=== PATIENT | female | born 2005 | race Caucasian/White ===

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

== ENCOUNTER → 2023-02-02 10:43 | Outpatient (BNVA) | payer MEDICAID, SELFPAY | PROVIDERS: PCP Nurse Practitioner Family; Visit Provider Obstetrics & Gynecology | DX: Z34.90 Encounter for supervision of normal pregnancy, unspecified, unspecified trimester (principal); R82.90 Unspecified abnormal findings in urine | CPT/HCPCS: 84315; 87086 ==

== ENCOUNTER → 2023-02-23 13:56 | Outpatient (BNVA) | payer MEDICAID, SELFPAY | PROVIDERS: PCP Nurse Practitioner Family; Visit Provider Obstetrics & Gynecology | DX: Z34.90 Encounter for supervision of normal pregnancy, unspecified, unspecified trimester (principal) | CPT/HCPCS: 84315; 87086 ==

== ENCOUNTER → 2023-03-29 08:58 | Outpatient (BNVA) | payer MEDICAID, SELFPAY | PROVIDERS: PCP Nurse Practitioner Family; Visit Provider Obstetrics & Gynecology | DX: Z34.90 Encounter for supervision of normal pregnancy, unspecified, unspecified trimester (principal) | CPT/HCPCS: 82950; 84315 ==

== ENCOUNTER → 2023-04-06 14:20 | Outpatient (BNVA) | payer MEDICAID, SELFPAY | PROVIDERS: PCP Nurse Practitioner Family; Visit Provider Obstetrics & Gynecology | DX: Z34.90 Encounter for supervision of normal pregnancy, unspecified, unspecified trimester (principal) | CPT/HCPCS: 84315; 86850 ==

== ENCOUNTER → 2023-05-18 13:53 | Outpatient (BNVA) | payer MEDICAID, SELFPAY | PROVIDERS: PCP Nurse Practitioner Family; Visit Provider Obstetrics & Gynecology | DX: Z34.90 Encounter for supervision of normal pregnancy, unspecified, unspecified trimester (principal) | CPT/HCPCS: 84315; 87081 ==

== ENCOUNTER 2023-06-15 15:40 | Outpatient (CLI) | payer MEDICAID, SELFPAY ==
[2023-06-15 15:40] VITALS: BMI 40.4
[2023-06-15 15:59] VITALS: BP 128/85; PULSE 112
[2023-06-15 16:19] VITALS: BP 133/75; PULSE 112
== END 2023-06-15 16:26 | disposition home or self-care (01) ==
LOC: OPOB 15:52 → OBGYN 15:53
PROVIDERS: PCP Nurse Practitioner Family; Visit Provider Obstetrics & Gynecology
DX: O36.8190 Decreased fetal movements, unspecified trimester, not applicable or unspecified (principal); Z3A.00 Weeks of gestation of pregnancy not specified
CPT/HCPCS: 59025; 84315

== ENCOUNTER 2023-06-20 15:36 | Inpatient (IN) | payer MEDICAID, SELFPAY ==
[2023-06-20] VITALS (12 sets, daily range): BP systolic 109–137; BP diastolic 55–99; PULSE 96–137; RESP 20; TEMP 36.3–36.4; BMI 40.6
[2023-06-20] MEDS: hyDROXYzine 25 mg Capsule 50 MG PO (16:34)
[2023-06-20 18:23] LABS: Basophils % 0.3 %; Eosinophils # 0.1 10^3/uL (0.0-0.8); Eosinophils % 0.4 %; Hematocrit 33.7 % (36-47); Lymphocytes # 1.6 10^3/uL (1.5-6.5); Lymphocytes % 13.3 %; Mean Corpuscular Hemoglobin 27.1 pg (27-33); Mean Corpuscular Volume 84.5 fl (85-98); Mean Platelet Volume 10.3 fL (7.4-10.4); Monocytes % 8.7 %; Neutrophils # 9.08 10^3/uL (1.8-8.0); Neutrophils % 75.6 %; Nucleated Red Blood Cells % 0 %; Platelet Count 233 10^3/cmm (157-399); Red Blood Count 3.99 10^6/uL (3.85-5.65); Red Cell Distribution Width 14.8 % (12.1-15.1); White Blood Count 12.02 10^3/uL (4.5-13.0)
[2023-06-20] MEDS: dextrose 5%-lactated ringers 1,000 ML 125 ML IV (18:59)
--- NOTE | 2023-06-20 19:30 | PM.OBGYHP ---
Providers/Chief Complaint Admitting Physician: Jan Arteaga MD Primary TABLE GAMES SHIFT MANAGER: Jan Arteaga MD Primary Care Provider: EUGENE Gavin Chief Complaint: IOL-Post date HPI TABLE GAMES SHIFT MANAGER History of Present Illness 17 y.o. G1 EDC June 15, 2023 At 40 w 5 d No complications No c/o + active movements Admitted for induction of labor Present Details : 1 Para: 0 Labs Rubella: Immune RPR: Negative GBS: Negative Medications/Allergies Home Medications Medication Instructions Recorded Confirmed Last Taken Type mometasone 0.1 % topical cream 1 applic topical TID PRN itching 05/25/23 06/20/23 Unknown Rx #45 grams vits no.126-ferrous fum 1 tab PO DAILY 06/08/23 06/20/23 06/20/23 History 28 mg iron-folic acid 800 mcg tablet (Classic ) Allergies Allergy/AdvReac Type Severity Reaction Status Date / Time Penicillins Allergy Unknown unknown Verified 06/20/23 10:00 amoxicillin Allergy ALGY-Anaphy Verified 06/20/23 10:00 laxis tomato Allergy ALGY-Hives Verified 06/20/23 16:49 PFSH TABLE GAMES SHIFT MANAGER PFSH: Medical History Allergic rhinitis Hyperactivity Surgical History History of placement of ear tubes Family History Mother Migraines Other Suicide Denies family history of Cervical cancer Colon cancer Ovarian cancer Diabetes Breast cancer Hypertension Uterine cancer Stroke Social History Marital status: Single History History History 1 Term 0 Miscarriages/Ectopic Living Children Care CHIQUITA Calculator Estimated Delivery Date Method Current WG Current Estimate 06/15/23 LMP (Certain) 40w 6d Vitals/I&O/Wt Last Vital Signs Temp 97.5 F L 06/20/23 22:05 Pulse 100 06/21/23 01:42 Resp 20 H 06/20/23 15:39 BP 104/53 06/21/23 01:42 O2 Del Method Room Air, Nasal Cannula 06/20/23 14:50 Weight last 48 hrs Weight 215 lb Physical Exam Narrative: Weight 220 lbs; 5?2? VS normal Comfortable Awake, alert Lungs: clear Cor: RRR FH 38 cm; cephalic (scanned by me at 36 w) FHTs normal Cervix: 1 / 25% / -3 / posterior Ext: no edema External monitor: heart tracing good variability, + accelerations Data 06/20/23 18:13 Results Labs OB ([facility]): Obstetrics US 01/26/23 Blood Type O Negative 06/20/23 Antibody Screen Negative 06/20/23 Hct 33.7 % (36-47) L 06/20/23 Hgb 10.80 g/dL (12.4-14.8) L 06/20/23 Rho(D) Type Negative 06/20/23 Plt Count 233 10^3/cmm (157-399) 06/20/23 Hep Bs Antigen Non-reactive (Nonreactive) 11/24/22 Hepatitis C Antibody Non-reactive (Nonreactive) 11/24/22 Rubella IgG Antibody 53.5 IU/mL (0.0-10.0) H 11/24/22 RPR Nonreactive (Nonreactive) 11/24/22 HIV 1&2 Ab & HIV 1 Ag Non-reactive (Non-Reactiv) 11/24/22 TSH 0.57 uIU/mL (0.27-4.20) 12/01/22 Cystic Fibrosis Screen Negative 11/24/22 Quad Test Interpret See note 12/29/22 Gest Glucose Tolerance 86 mg/dL (70-139) 03/29/23 Estriol MoM 1.37 12/29/22 HCG, Qual Positive (Negative) H 10/20/22 Urine Opiates Screen Negative ng/mL (Negative) 11/24/22 Ur Barbiturates Screen Negative ng/mL (Negative) 11/24/22 Ur Phencyclidine Scrn Negative ng/mL (Negative) 11/24/22 Ur Amphetamines Screen Negative ng/mL (Negative) 11/24/22 U Benzodiazepines Scrn Negative ng/mL (Negative) 11/24/22 Urine Cocaine Screen Negative ng/mL (Negative) 11/24/22 U Marijuana (THC) Screen Negative ng/mL (Negative) 11/24/22 Micro Urine Specimen 02/23/23 A&P Assessment and plan (1) Supervision of normal : 40 w 5 d GBS negative Fetus reassuring (2) Encounter for induction of labor: Admit for induction of labor Plan Cytotec 25 ug intravaginal (3) Rh negative state in antepartum period: Attestations Medical Necessity Statement*: patient at 40 w 5 d, admit for labor induction Coding Level of Care Code Acute Code for Chg Fwd Diagnoses Supervision of normal Z34.90 Encounter for induction of labor Z34.90 Rh negative state in antepartum period O26.899; Z67.91 Time Spent (min) 30
[2023-06-20] MEDS: miSOPROStol 100 mcg tablet 25 MCG VAGINAL (20:06)
[2023-06-21] VITALS (253 sets, daily range): BP systolic 101–146; BP diastolic 51–97; PULSE 78–155; RESP 18–20; TEMP 36.6–37.9; O2SAT 88–100
[2023-06-21] MEDS: miSOPROStol 100 mcg tablet 25 MCG VAGINAL (01:09)
[2023-06-21] MEDS: oxytocin 30 UNIT/500 ML BAG IV (06:15)
[2023-06-21] MEDS: fentaNYL 50 mcg/mL INJ 2mL IVP ×4 (07:54→12:05)
[2023-06-21] MEDS: hyDROXYzine 25 mg Capsule 50 MG PO (07:54)
[2023-06-21] MEDS: dextrose 5%-lactated ringers 1,000 ML 125 ML IV (08:42)
--- NOTE | 2023-06-21 09:30 | ANES.PREANE2 ---
Pre-Anesthetic Assessment Height/Weight: Height 1.55 m Weight 97.522 kg Temp Pulse Resp BP Pulse Ox O2 Del Method 97.9 F 109 H 18 142/96 96 Room Air, Nasal Cannula 06/21/23 07:45 06/21/23 09:07 06/21/23 07:54 06/21/23 09:07 06/21/23 08:26 06/20/23 14:50 epidural Familial anesthetic complications: None Exam alert, oriented x 3, clear to auscultation bilaterally and regular rate & rhythm Airway Dentition: chipped Metabolic Morbid Obesity Anesthetic Plan ASA status: 2 Anesthesia: Regional (specify below) Risk of > 500 ml blood loss (7ml/kg in children): Yes, adequate IV access and fluids planned Medications/Allergies Home Medications Medication Instructions Recorded Confirmed Last Taken Type mometasone 0.1 % topical cream 1 applic topical TID PRN itching 05/25/23 06/20/23 Unknown Rx #45 grams vits no.126-ferrous fum 1 tab PO DAILY 06/08/23 06/20/23 06/20/23 History 28 mg iron-folic acid 800 mcg tablet (Classic ) Allergies Allergy/AdvReac Type Severity Reaction Status Date / Time Penicillins Allergy Unknown unknown Verified 06/20/23 10:00 amoxicillin Allergy ALGY-Anaphy Verified 06/20/23 10:00 laxis tomato Allergy ALGY-Hives Verified 06/20/23 16:49 Current Medications Generic Name Dose Route Start Last Admin Trade Name Freq PRN Reason Stop Dose Admin Fentanyl 25 - 100 mcg 06/20/23 15:36 06/21/23 07:54 Fentanyl 50 Mcg/Ml Inj 2ml IVP 25 mcg Q1H PRN Administration SEVERE PAIN Hydroxyzine Pamoate 50 mg 06/20/23 15:36 06/21/23 07:54 Hydroxyzine 25 Mg Capsule PO 50 mg QID PRN Administration sleep, agitation or itching Dextrose/Lactated Ringer's 1,000 mls @ 125 mls/hr 06/20/23 15:45 06/21/23 08:42 Dextrose 5%-Lactated Ringers IV 125 mls/hr .Q8H ALY Administration Oxytocin 30 unit in 500 mls @ 1 mls/hr 06/21/23 05:30 06/21/23 06:15 Pitocin IV 1 milliunit/min .Q24H ALY 1 mls/hr Administration Protocol 1 MILLIUNIT/MIN PFSH Anesthesia Medical History Allergic rhinitis Hyperactivity Surgical History History of placement of ear tubes Family History Mother Migraines Other Suicide Denies family history of Cervical cancer Colon cancer Ovarian cancer Diabetes Breast cancer Hypertension Uterine cancer Stroke Social History Marital status: Single Female Reproductive History : 1 Data Anesthesia 06/20/23 18:13 Short CBC 06/20/23 Range/Units 18:13 WBC 12.02 (4.5-13.0) 10^3/uL Hgb 10.80 L (12.4-14.8) g/dL Hct 33.7 L (36-47) % MCV 84.5 L (85-98) fl Plt Count 233 (157-399) 10^3/cmm Neut % (Auto) 75.6 % Neut # (Auto) 9.08 H (1.8-8.0) 10^3/uL Blood Bank 06/20/23 18:13 Blood Type O Negative Rho(D) Type Negative Antibody Screen Negative Cardiac Studies: No Data to Display
[2023-06-21] MEDS: lactated ringers 1,000 ML 999 ML IV ×3 (09:33→19:50)
--- NOTE | 2023-06-21 11:40 | P.PN_ITS ---
BI APPLICATION DEVELOPER Subjective Subjective: Interval history: June 21, 2023, 1140 Fetus reassuring Crying with UCs Requests epidural Cervix 3 cm Labor: Station: 0 Amniotic Membrane Status: Ruptured Monitor Mode: External Contraction Pattern: Regular Status: Category I Vitals/I&O/Wt Last Vital Signs Temp 98.7 F 06/22/23 19:15 Pulse 116 H 06/22/23 21:02 Resp 16 06/22/23 19:15 BP 113/59 06/22/23 21:02 Pulse Ox 99 06/22/23 19:15 O2 Del Method Room Air 06/22/23 19:15 06/22/23 06/22/23 06/23/23 14:59 22:59 06:59 Intake Total 3066.6 / 3066.6 Output Total 1200 / 1200 400 / 1600 50 / 1650 Balance 1866.6 / 1866.6 -400 / 1466.6 -50 / 1416.6 Physical Exam Urinary Catheter Management: Dia: Cath Placed During This Visit: yes, but has since been removed by the nurse Reason for Continuing Indwelling Catheter: Decision to DC Catheter Urinary Catheter Date of Insertion: 06/22/23 Urinary Catheter Time of Insertion: 09:35 Date Urinary Catheter Removed: 06/22/23 Time Urinary Catheter Discontinued: 21:29 Data 06/22/23 22:50 A&P Assessment and plan (1) Encounter for induction of labor: Attestations Medical Necessity Statement*: patient at 40 w 5 d, admitted for labor induction Coding Level of Care Code Acute Code for Chg Fwd Diagnoses Encounter for induction of labor Z34.90 Time Spent (min) 20
[2023-06-21] MEDS: LORazepam 2 mg/mL INJ 1 mL 1 MG IVP (11:47)
[2023-06-21] MEDS: ROPivacaine syringe 100 MG/50 ML SYRINGE 10 MG EPIDURAL ×3 (13:00→22:17)
--- NOTE | 2023-06-21 13:28 | ANES.PROC ---
Anesthesia Procedures Procedure/Date: 06/21/23 Epidural: Time Out Performed: Yes Consents Signed: Procedure Consent Consent: requested by attending/covering physician, from patient, from other, risks and benefits reviewed and patient agrees to proceed Lumbar Level: L3-L4 Epidural position: sitting Epidural procedure: sterile prep of area, 1% lidocaine to numb the area, 18 g needle, negative for paresthesia passed, neg for paresthesia, test dose given, 1.5% xylocaine 1:200k epi (5), 0.2% Ropivacaine bolus ml (5), placed PCEA, no systemic response, sterile dressing applied, L.U.D. no apparent complications and 0.2% Ropiavacaine @ mls/hr (10) Additional Comments: Very difficult to get patient to cooperate with positioning for procedure. EDMUND at 6.5 cm. threaded to 12 cm. Patient reported improved pain of contractions after epidural
--- NOTE | 2023-06-21 14:20 | PM.OBGYPN ---
READY TO WEAR DEPARTMENT MANAGER Subjective Subjective: Interval history: June 21, 2023, 1420 Fetus reassuring Comfortable with epidural Cervix 4 cm Labor: Station: 0 Amniotic Membrane Status: Ruptured Monitor Mode: External Contraction Pattern: Regular Status: Category I Vitals/I&O/Wt Last Vital Signs Temp 98.7 F 06/22/23 19:15 Pulse 116 H 06/22/23 21:02 Resp 16 06/22/23 19:15 BP 113/59 06/22/23 21:02 Pulse Ox 99 06/22/23 19:15 O2 Del Method Room Air 06/22/23 19:15 06/22/23 06/22/23 06/23/23 14:59 22:59 06:59 Intake Total 3066.6 / 3066.6 Output Total 1200 / 1200 400 / 1600 50 / 1650 Balance 1866.6 / 1866.6 -400 / 1466.6 -50 / 1416.6 Physical Exam Urinary Catheter Management: Dia: Cath Placed During This Visit: yes, but has since been removed by the nurse Reason for Continuing Indwelling Catheter: Decision to DC Catheter Urinary Catheter Date of Insertion: 06/22/23 Urinary Catheter Time of Insertion: 09:35 Date Urinary Catheter Removed: 06/22/23 Time Urinary Catheter Discontinued: 21:29 Data 06/22/23 22:50 A&P Assessment and plan (1) Encounter for induction of labor: Attestations Medical Necessity Statement*: Patient at 40 w 5 d, admitted for labor induction Coding Level of Care Code Acute Code for Chg Fwd Diagnoses Encounter for induction of labor Z34.90 Time Spent (min) 20
[2023-06-21] MEDS: ondansetron 2 mg/ML SDV 2 mL 4 MG IVP ×2 (16:03→19:19)
[2023-06-21] MEDS: lanolin oint 7 gm 1 APPLIC TOPICAL (18:02)
--- NOTE | 2023-06-21 20:35 | PM.OBGYPN ---
CORPORATE DEVELOPMENT ANALYST Subjective Subjective: Interval history: June 21, 20232034 Fetus reassuring Cervix 7 cm Labor: Station: 0 Amniotic Membrane Status: Ruptured Monitor Mode: External Contraction Pattern: Regular Status: Category I Vitals/I&O/Wt Last Vital Signs Temp 98.7 F 06/22/23 19:15 Pulse 105 H 06/23/23 02:58 Resp 16 06/22/23 19:15 BP 114/68 06/23/23 02:58 Pulse Ox 99 06/22/23 19:15 O2 Del Method Room Air 06/22/23 19:15 06/22/23 06/22/23 06/23/23 14:59 22:59 06:59 Intake Total 3066.6 / 3066.6 Output Total 1200 / 1200 400 / 1600 50 / 1650 Balance 1866.6 / 1866.6 -400 / 1466.6 -50 / 1416.6 Physical Exam Urinary Catheter Management: Dia: Cath Placed During This Visit: yes, but has since been removed by the nurse Reason for Continuing Indwelling Catheter: Decision to DC Catheter Urinary Catheter Date of Insertion: 06/22/23 Urinary Catheter Time of Insertion: 09:35 Date Urinary Catheter Removed: 06/22/23 Time Urinary Catheter Discontinued: 21:29 Data 06/22/23 22:50 A&P Assessment and plan (1) Encounter for induction of labor: Attestations Medical Necessity Statement*: Patient at 40 w 5 d, admitted for labor induction Coding Level of Care Code Acute Code for Chg Fwd Diagnoses Encounter for induction of labor Z34.90 Time Spent (min) 20
[2023-06-21] MEDS: acetaminophen 325 mg Tablet 650 MG PO (20:49)
[2023-06-21] MEDS: vancomycin 2,000 MG/400 ML PIGGYBACK 200 MG IV (21:42)
--- NOTE | 2023-06-21 23:40 | PM.OBGYPN ---
ENVIRONMENTAL MARKETING REPRESENTATIVE Subjective Subjective: Interval history: June 21, 2023, 2340 Fetus reassuring Patient with temp to 100.3 Will start Clindamycin Cervix 8 cm Labor: Station: 0 Amniotic Membrane Status: Ruptured Monitor Mode: External Contraction Pattern: Regular Status: Category I Vitals/I&O/Wt Last Vital Signs Temp 98.7 F 06/22/23 19:15 Pulse 114 H 06/23/23 03:02 Resp 16 06/22/23 19:15 BP 112/64 06/23/23 03:02 Pulse Ox 99 06/22/23 19:15 O2 Del Method Room Air 06/22/23 19:15 06/22/23 06/22/23 06/23/23 14:59 22:59 06:59 Intake Total 3066.6 / 3066.6 Output Total 1200 / 1200 400 / 1600 50 / 1650 Balance 1866.6 / 1866.6 -400 / 1466.6 -50 / 1416.6 Physical Exam Urinary Catheter Management: Dia: Cath Placed During This Visit: yes, but has since been removed by the nurse Reason for Continuing Indwelling Catheter: Decision to DC Catheter Urinary Catheter Date of Insertion: 06/22/23 Urinary Catheter Time of Insertion: 09:35 Date Urinary Catheter Removed: 06/22/23 Time Urinary Catheter Discontinued: 21:29 Data 06/22/23 22:50 A&P Assessment and plan (1) Encounter for induction of labor: Attestations Medical Necessity Statement*: Patient at 40 w 5 d, admitted for labor induction Coding Level of Care Code Acute Code for Chg Fwd Diagnoses Encounter for induction of labor Z34.90 Time Spent (min) 20
[2023-06-22] VITALS (195 sets, daily range): BP systolic 103–147; BP diastolic 54–92; PULSE 106–150; RESP 16–18; TEMP 36.9–38.1; O2SAT 92–100
[2023-06-22] MEDS: dextrose 5%-lactated ringers 1,000 ML 125 ML IV ×2 (01:29→15:05)
--- NOTE | 2023-06-22 02:20 | PM.OBGYPN ---
APPLICATION SOFTWARE DEVELOPER Subjective Subjective: Interval history: June 22, 2023, 0220 Fetus reassuring Cervix: 9 cm / -2 station Labor: Station: 0 Amniotic Membrane Status: Ruptured Monitor Mode: External Contraction Pattern: Regular Status: Category I Vitals/I&O/Wt Last Vital Signs Temp 98.7 F 06/22/23 19:15 Pulse 114 H 06/23/23 03:02 Resp 16 06/22/23 19:15 BP 112/64 06/23/23 03:02 Pulse Ox 99 06/22/23 19:15 O2 Del Method Room Air 06/22/23 19:15 06/22/23 06/22/23 06/23/23 14:59 22:59 06:59 Intake Total 3066.6 / 3066.6 Output Total 1200 / 1200 400 / 1600 50 / 1650 Balance 1866.6 / 1866.6 -400 / 1466.6 -50 / 1416.6 Physical Exam Urinary Catheter Management: Dia: Cath Placed During This Visit: yes, but has since been removed by the nurse Reason for Continuing Indwelling Catheter: Decision to DC Catheter Urinary Catheter Date of Insertion: 06/22/23 Urinary Catheter Time of Insertion: 09:35 Date Urinary Catheter Removed: 06/22/23 Time Urinary Catheter Discontinued: 21:29 Data 06/22/23 22:50 A&P Assessment and plan (1) Encounter for induction of labor: Attestations Medical Necessity Statement*: Patient at 40 w 6 d, admitted for labor induction Coding Level of Care Code Acute Code for Chg Fwd Diagnoses Encounter for induction of labor Z34.90 Time Spent (min) 20
[2023-06-22] MEDS: ROPivacaine syringe 100 MG/50 ML SYRINGE 10 MG EPIDURAL (06:21)
[2023-06-22] MEDS: vancomycin 2,000 MG/400 ML PIGGYBACK 200 MG IV (06:23)
--- NOTE | 2023-06-22 07:05 | P.PN_ITS ---
PARKING PATROLLER Subjective Subjective: Interval history: June 22, 2023, 0705 Fetus reassuring Cervix: reducible anterior lip / -2 station Start pushing efforts Labor: Station: 0 Amniotic Membrane Status: Ruptured Monitor Mode: External Contraction Pattern: Regular Status: Category I Vitals/I&O/Wt Last Vital Signs Temp 98.7 F 06/22/23 19:15 Pulse 114 H 06/23/23 03:02 Resp 16 06/22/23 19:15 BP 112/64 06/23/23 03:02 Pulse Ox 99 06/22/23 19:15 O2 Del Method Room Air 06/22/23 19:15 06/22/23 06/22/23 06/23/23 14:59 22:59 06:59 Intake Total 3066.6 / 3066.6 Output Total 1200 / 1200 400 / 1600 50 / 1650 Balance 1866.6 / 1866.6 -400 / 1466.6 -50 / 1416.6 Physical Exam Urinary Catheter Management: Dia: Cath Placed During This Visit: yes, but has since been removed by the nurse Reason for Continuing Indwelling Catheter: Decision to DC Catheter Urinary Catheter Date of Insertion: 06/22/23 Urinary Catheter Time of Insertion: 09:35 Date Urinary Catheter Removed: 06/22/23 Time Urinary Catheter Discontinued: 21:29 Data 06/22/23 22:50 A&P Assessment and plan (1) Encounter for induction of labor: Attestations Medical Necessity Statement*: Patient at 40 w 6 d, admitted for labor induction Coding Level of Care Code Acute Code for Chg Fwd Diagnoses Encounter for induction of labor Z34.90 Time Spent (min) 20
--- NOTE | 2023-06-22 09:35 | PM.OBGYPN ---
CHANNEL BUSINESS MANAGER Subjective Subjective: Interval history: June 22, 2023, 0935 Fetus reassuring Patient has been pushing x 2 hours Cervix: complete / -1 station No descent with adequate pushing beyond -1 station Will proceed with for delivery Procedure and risks explained to patient, including, but not limited to, risks of infection, bleeding, injury to internal organs, anesthesia, blood transfusions Patient understands and wants to proceed Labor: Station: 0 Amniotic Membrane Status: Ruptured Monitor Mode: External Contraction Pattern: Regular Status: Category I Vitals/I&O/Wt Last Vital Signs Temp 98.7 F 06/22/23 19:15 Pulse 114 H 06/23/23 03:02 Resp 16 06/22/23 19:15 BP 112/64 06/23/23 03:02 Pulse Ox 99 06/22/23 19:15 O2 Del Method Room Air 06/22/23 19:15 06/22/23 06/22/23 06/23/23 14:59 22:59 06:59 Intake Total 3066.6 / 3066.6 Output Total 1200 / 1200 400 / 1600 50 / 1650 Balance 1866.6 / 1866.6 -400 / 1466.6 -50 / 1416.6 Physical Exam Urinary Catheter Management: Dia: Cath Placed During This Visit: yes, but has since been removed by the nurse Reason for Continuing Indwelling Catheter: Decision to DC Catheter Urinary Catheter Date of Insertion: 06/22/23 Urinary Catheter Time of Insertion: 09:35 Date Urinary Catheter Removed: 06/22/23 Time Urinary Catheter Discontinued: 21:29 Data 06/22/23 22:50 A&P Assessment and plan (1) Encounter for induction of labor: Attestations Medical Necessity Statement*: Patient at 40 w 6 d, admitted for labor induction Coding Level of Care Code Acute Code for Chg Fwd Diagnoses Encounter for induction of labor Z34.90 Time Spent (min) 45
[2023-06-22] MEDS: lactated ringers 1,000 ML 999 ML IV (09:39)
[2023-06-22] MEDS: citric acid-sodium citrate 30 mL UDC PO (09:55)
[2023-06-22] MEDS: metoclopramide 5 mg/mL SDV 2 mL 10 MG IVP (09:55)
[2023-06-22] MEDS: famotidine 20 mg/2 mL INJ IVP (09:55)
--- NOTE | 2023-06-22 11:25 | P.OP_ITS ---
Operative Report Date of procedure: June 22, 2023 Pre-op diagnosis: 40 w 6 d gestation Complete cervical dilatation, -1 station No descent even with adequate pushing efforts Failure to descend Post-op diagnosis: same Post-op findings: Vigorous male Normal placenta and cord Normal uterus, tubes, and ovaries Procedure done: Primary low-transverse Implants: none Specimens removed/disposition: placenta, discarded Surgeon: Jan Arteaga MD Anesthesia: Epidural Estimated blood loss (mL): 400 Complications: none Condition: stable Disposition: floor Brief History: 17 y.o. G1 at 40 w 5 d, admitted for labor induction patient progressed to complete cervical dilatation, -1 station No descent despite two hours of adequate pushing efforts Procedure: Informed consent signed. Patient was taken to the operating room, placed supine in the left lateral tilt position. Epidural anesthesia and a Dia catheter were already placed. The abdomen was prepped and draped in the usual sterile fashion. A Pfannenstiel incision was made and carried down through skin and subcutaneous tissue and fascia. The fascial incision was extended laterally with Ray scissors. The fascia was from the underlying rectus muscles. The rectus muscles were split in the midline. The peritoneum was entered bluntly avoiding underlying organs. A bladder flap was created. A low transverse uterine incision was made and extended laterally bluntly avoiding the uterine vessels. Clear amniotic fluid was seen. The baby was delivered in cephalic presentation atraumatically. The baby was suctioned. The cord was clamped and cut and the baby was handed to an awaiting developmental psychologist. Cord blood was obtained. The placenta was manually removed intact. The uterus was exteriorized. The uterine cavity was bluntly curetted with wet laps. The uterine incision was then closed with a continuous interlocking stitich of O chromic. Adequate hemostasis was seen. No bleeding was seen. The fascia was then closed with a continuous stitch of O-Vicryl. Additional interrupted stitches of O-Vicryl were used for fascial closure. The subcutaneous tissue was irrigated and inspected for hemostasis. The skin was then reapproximated using Insorb merry. Postoperative condition stable Disposition to recovery room Estimated blood loss 400 cc, no replacement Sponge, needle, and instrument counts were correct x two There were no complications
[2023-06-22] MEDS: HYDROcodone-acetaminophen 5-325 mg Tablet PO ×3 (13:11→23:06)
[2023-06-22] MEDS: ketorolac 30 mg/mL INJ IVP ×2 (15:05→20:32)
[2023-06-22] MEDS: ferrous sulfate EC 325 mg Tablet PO (17:32)
[2023-06-22] MEDS: docusate sodium 100 mg Capsule PO (17:32)
--- NOTE | 2023-06-22 21:13 | PC.NURSE ---
This marketing copywriter assisted pt up to ambulate in the alfred. Pt took one lap around the OB unit without any assistance. Tolerated well.
[2023-06-22 23:00] LABS: Hematocrit 26.2 % (36-47); Mean Corpuscular HGB Conc 30.5 g/dL (30-55); Mean Corpuscular Volume 85.1 fl (85-98); Platelet Count 183 10^3/cmm (157-399); Red Blood Count 3.08 10^6/uL (3.85-5.65); Red Cell Distribution Width 15.2 % (12.1-15.1); White Blood Count 15.61 10^3/uL (4.5-13.0)
[2023-06-23] VITALS (11 sets, daily range): BP systolic 112–132; BP diastolic 62–81; PULSE 104–126; RESP 16; TEMP 36.8–37.3; O2SAT 98
[2023-06-23] MEDS: ketorolac 30 mg/mL INJ IVP (02:51)
[2023-06-23] MEDS: HYDROcodone-acetaminophen 5-325 mg Tablet PO ×2 (07:06→12:25)
--- NOTE | 2023-06-23 08:40 | ANE.PACU2 ---
Inpatient post-anesthesia follow up: Airway intact: Yes Vital signs: Temperature 98.2 F Pulse Rate 104 Respiratory Rate 16 Blood Pressure 115/63 Pulse Oximetry 99 Oxygen Delivery Me thod Room Air Oxygen Flow Rate Fraction of Inspir ed Oxygen Hydration adequate: Yes Nausea and vomiting: No Pain level: 1 Mental status: Baseline
[2023-06-23] MEDS: prenatal vitamin Capsule 1 CAP PO (08:46)
[2023-06-23] MEDS: docusate sodium 100 mg Capsule PO ×2 (08:47→17:23)
--- NOTE | 2023-06-23 09:10 | PM.OBGYPN ---
HEARING AID CONSULTANT Subjective Subjective: Interval history: c/o mild incisional pain no bleeding, nausea, vomiting tolerating PO well caring for infant without any difficulties Labor: Station: 0 Amniotic Membrane Status: Ruptured Monitor Mode: External Contraction Pattern: Regular Status: Category I Vitals/I&O/Wt Last Vital Signs Temp 98.4 F 06/24/23 13:45 Pulse 102 H 06/24/23 13:45 Resp 18 06/24/23 13:45 BP 121/77 06/24/23 13:45 Pulse Ox 98 06/23/23 23:07 O2 Del Method Room Air 06/24/23 09:30 06/24/23 06/24/23 06/24/23 06:59 14:59 22:59 Intake Total 500 / 1100 0 / 0 Balance 500 / 1100 0 / 0 Physical Exam Narrative: afebrile, VS normal comfortable, awake, alert Lungs: clear Cor: RRR Abd: soft, nondistended, nontender fundus firm wound clean and dry Ext: normal Urinary Catheter Management: Corado: Cath Placed During This Visit: yes, but has since been removed by the nurse Reason for Continuing Indwelling Catheter: Decision to DC Catheter Urinary Catheter Date of Insertion: 06/22/23 Urinary Catheter Time of Insertion: 09:35 Date Urinary Catheter Removed: 06/22/23 Time Urinary Catheter Discontinued: 21:29 Data 06/22/23 22:50 A&P Assessment and plan (1) S/P primary low transverse : POD #1 primary low-transverse doing well continue postop care remove corado ambulate Attestations Medical Necessity Statement*: patient s/p primary low-transverse , postop care Coding Level of Care Code Acute Code for Chg Fwd Diagnoses S/P primary low transverse Z98.891 Time Spent (min) 20
[2023-06-23] MEDS: ibuprofen 800 mg tablet PO ×2 (17:24→20:26)
[2023-06-23] MEDS: ferrous sulfate EC 325 mg Tablet PO (17:24)
[2023-06-24 04:22] VITALS: BP 121/77; PULSE 109; RESP 16; TEMP 36.7
[2023-06-24] MEDS: docusate sodium 100 mg Capsule PO (08:40)
[2023-06-24] MEDS: prenatal vitamin Capsule 1 CAP PO (08:40)
[2023-06-24] MEDS: ferrous sulfate EC 325 mg Tablet PO (08:41)
[2023-06-24] MEDS: ibuprofen 800 mg tablet PO (08:41)
[2023-06-24 09:30] VITALS: BP 129/85; PULSE 114; RESP 17; TEMP 36.9
[2023-06-24 09:44] VITALS: BP 144/87; PULSE 114; RESP 20; TEMP 36.7
--- NOTE | 2023-06-24 11:40 | P.PN_ITS ---
GEODETIC SURVEY DIRECTOR Subjective Subjective: Interval history: no c/o eating, voiding, ambulating well no pain, bleeding wants to go home without any difficulties Labor: Station: 0 Amniotic Membrane Status: Ruptured Monitor Mode: External Contraction Pattern: Regular Status: Category I Vitals/I&O/Wt Last Vital Signs Temp 98.4 F 06/24/23 13:45 Pulse 102 H 06/24/23 13:45 Resp 18 06/24/23 13:45 BP 121/77 06/24/23 13:45 Pulse Ox 98 06/23/23 23:07 O2 Del Method Room Air 06/24/23 09:30 06/24/23 06/24/23 06/24/23 06:59 14:59 22:59 Intake Total 500 / 1100 0 / 0 Balance 500 / 1100 0 / 0 Physical Exam Narrative: comfortable afebrile, VS normal Abd: soft, nontender wound clean and dry Ext: normal Urinary Catheter Management: Dia: Cath Placed During This Visit: yes, but has since been removed by the nurse Reason for Continuing Indwelling Catheter: Decision to DC Catheter Urinary Catheter Date of Insertion: 06/22/23 Urinary Catheter Time of Insertion: 09:35 Date Urinary Catheter Removed: 06/22/23 Time Urinary Catheter Discontinued: 21:29 Data 06/22/23 22:50 A&P Assessment and plan (1) S/P primary low transverse : POD #2 primary low-transverse doing well discharge home today instructions and precautions given call/return if fever, chills, nausea, vomiting, headaches, abdominal pain, bleeding, inability to void, swelling, leg pain; feelings of depression or mood changes; wound redness, swelling, or discharge f/u in 1 week or PRN Attestations Medical Necessity Statement*: patient s/p , plan discharge home today Coding Level of Care Code Acute Code for Chg Fwd Diagnoses S/P primary low transverse Z98.891 Time Spent (min) 20
--- NOTE | 2023-06-24 11:50 | P.DS_ITS ---
Discharge Providers DIRECTOR OF PLANT OPERATIONS Date of Admission: 06/20/23 15:36 Date of Discharge: 06/24/23 Attending Provider at Admission: Jan Arteaga MD Attending Provider at Discharge: Jan Arteaga MD Consults: none Primary DIRECTOR OF PLANT OPERATIONS: Jan Arteaga MD Primary Care Provider: EUGENE Gavin Diagnoses at Discharge Discharge Diagnosis (1) S/P primary low transverse : Details from hospital stay: Patient at 40 w 6 d, admitted for labor induction patient progressed to complete / -1 station Despite two hours of adequate pushing, fetus failed to descend primary low-transverse was done patient did well postoperatively and was discharge home on postop day #2 Status: Acute Reason for Visit Reason for Visit: IOL-Post date Brief History: Patient at 40 w 6 d, admitted for labor induction Hospital Course Hospital Course patient progressed to complete / -1 station Despite two hours of adequate pushing, fetus failed to descend primary low-transverse was done patient did well postoperatively and was discharge home on postop day #2 Information Peripartum Data: Delivery Method: Laceration description: None Episiotomy description: None complications: none Physical Exam Narrative: comfortable afebrile, VS normal Abd: soft, nontender wound clean and dry Ext: normal Urinary Catheter Management: Dia: Cath Placed During This Visit: yes, but has since been removed by the nurse Reason for Continuing Indwelling Catheter: Decision to DC Catheter Urinary Catheter Date of Insertion: 06/22/23 Urinary Catheter Time of Insertion: 09:35 Date Urinary Catheter Removed: 06/22/23 Time Urinary Catheter Discontinued: 21:29 History History History 1 Term 0 Miscarriages/Ectopic Living Children Discharge Data Studies Completed and Pending none Laboratory Results WBC 15.61 10^3/uL (4.5-13.0) H 06/22/23 22:50 RBC 3.08 10^6/uL (3.85-5.65) L 06/22/23 22:50 Hgb 8.00 g/dL (12.4-14.8) L 06/22/23 22:50 Hct 26.2 % (36-47) L 06/22/23 22:50 MCV 85.1 fl (85-98) 06/22/23 22:50 MCH 26.0 pg (27-33) L 06/22/23 22:50 MCHC 30.5 g/dL (30-55) 06/22/23 22:50 RDW 15.2 % (12.1-15.1) H 06/22/23 22:50 Plt Count 183 10^3/cmm (157-399) 06/22/23 22:50 MPV 10.0 fL (7.4-10.4) 06/22/23 22:50 Neut % (Auto) 75.6 % 06/20/23 18:13 Lymph % (Auto) 13.3 % 06/20/23 18:13 [place] % (Auto) 8.7 % 06/20/23 18:13 Eos % (Auto) 0.4 % 06/20/23 18:13 Baso % (Auto) 0.3 % 06/20/23 18:13 Neut # (Auto) 9.08 10^3/uL (1.8-8.0) H 06/20/23 18:13 Lymph # (Auto) 1.6 10^3/uL (1.5-6.5) 06/20/23 18:13 [place] # (Auto) 1.0 10^3/uL (0.2-0.9) H 06/20/23 18:13 Eos # (Auto) 0.1 10^3/uL (0.0-0.8) 06/20/23 18:13 Baso # (Auto) 0.0 10^3/uL (0.0-0.1) 06/20/23 18:13 Nucleated RBC % (auto) 0 % 06/20/23 18:13 Nucleated RBCs # 0.0 /100WBC 06/20/23 18:13 Blood Type O Negative 06/20/23 18:13 Rho(D) Type Negative 06/20/23 18:13 Antibody Screen Negative 06/20/23 18:13 Screen Negative (Negative) 06/22/23 22:50 Procedures Performed labor induction primary low-transverse Vitals Last Vital Signs Temp 98.4 F 06/24/23 13:45 Pulse 102 H 06/24/23 13:45 Resp 18 06/24/23 13:45 BP 121/77 06/24/23 13:45 Pulse Ox 98 06/23/23 23:07 O2 Del Method Room Air 11/17/23 09:30 Results Labs OB ([facility]): Obstetrics US 01/26/23 Blood Type O Negative 06/20/23 Antibody Screen Negative 06/20/23 Hct 26.2 % (36-47) L 06/22/23 Hgb 8.00 g/dL (12.4-14.8) L 06/22/23 Rho(D) Type Negative 06/20/23 Plt Count 183 10^3/cmm (157-399) 06/22/23 Hep Bs Antigen Non-reactive (Nonreactive) 11/24/22 Hepatitis C Antibody Non-reactive (Nonreactive) 11/24/22 Rubella IgG Antibody 53.5 IU/mL (0.0-10.0) H 11/24/22 RPR Nonreactive (Nonreactive) 11/24/22 HIV 1&2 Ab & HIV 1 Ag Non-reactive (Non-Reactiv) 11/24/22 TSH 0.57 uIU/mL (0.27-4.20) 12/01/22 Cystic Fibrosis Screen Negative 11/24/22 Quad Test Interpret See note 12/29/22 Gest Glucose Tolerance 86 mg/dL (70-139) 03/29/23 Estriol MoM 1.37 12/29/22 HCG, Qual Positive (Negative) H 10/20/22 Urine Opiates Screen Negative ng/mL (Negative) 11/24/22 Ur Barbiturates Screen Negative ng/mL (Negative) 11/24/22 Ur Phencyclidine Scrn Negative ng/mL (Negative) 11/24/22 Ur Amphetamines Screen Negative ng/mL (Negative) 11/24/22 U Benzodiazepines Scrn Negative ng/mL (Negative) 11/24/22 Urine Cocaine Screen Negative ng/mL (Negative) 11/24/22 U Marijuana (THC) Screen Negative ng/mL (Negative) 11/24/22 Micro Urine Specimen 02/23/23 Discharge Plan Discharge Patient Disposition: Home Condition: Stable Prescriptions: New Percocet 5-325 mg tablet 1 tab PO BID PRN (Reason: pain) Qty: 20 0RF Continued mometasone 0.1 % cream 1 applic topical TID PRN (Reason: itching) Qty: 45 2RF Classic 28 mg iron- 800 mcg tablet 1 tab PO DAILY Discharge Orders: Discharge Order (Routine); Ordered 06/24/23 Ordered By: Jan Arteaga Referrals: Jan Arteaga MD [Physician] - (FOLLOW UP INCISIONAL CHECK ON June AT 0945 [address] UP WITH DR. ARTEAGA ON AT 3:15 PM) Discharge Diet: Usual diet Discharge Activity: Increase activity as tolerated Patient Instructions: Depression (DC), Bleeding (DC), Preeclampsia and Eclampsia After Delivery (GEN), Hemorrhage (DC), OB WHC, OB Discharge Report, OB Anesthesia Instructions, OB Food/Drug Interaction Guide, Opioid Safety, OB Home Care, OB Proud Parent Packet Discharge Attestations DIRECTOR OF PLANT OPERATIONS Time Spent in Discharge Care*: less than 30 min Coding Level of Care Code Acute Code for Chg Fwd Diagnoses S/P primary low transverse Z98.891 Time Spent (min) 20
[2023-06-24 13:06] VITALS: BP 121/77; PULSE 102
[2023-06-24 13:45] VITALS: BP 121/77; PULSE 102; RESP 18; TEMP 36.9
== END 2023-06-24 13:45 | disposition home or self-care (01) | DRG 787 ==
LOC: OPOB 06-21 06:09 → OBGYN 06-21 07:06
PROVIDERS: Admitting Provider Obstetrics & Gynecology; PCP Nurse Practitioner Family; Visit Provider Obstetrics & Gynecology
PROC: 10D00Z1 Extraction of Products of Conception, Low, Open Approach (ICD-10-PCS; CPT 59514; principal; 2023-06-22 10:00)
DX: O48.0 Post-term pregnancy (principal); O75.2 Pyrexia during labor, not elsewhere classified; Z3A.40 40 weeks gestation of pregnancy; Z37.0 Single live birth; O32.4XX0 Maternal care for high head at term, not applicable or unspecified
CPT/HCPCS: 36415; 51702; 59025; 59409; 84315; 85025; 85027; 85460; 86850; 86900; 90384; 96374; 96376; 98960; 99211; J1885; J2060; J2274; J2405; J2590; J2704; J2765; J2795; J3010; J3372; J3490; J7030; J7120; J7121

== ENCOUNTER 2023-09-15 16:02 | Emergency (ER) | payer MEDICAID, SELFPAY ==
[2023-09-15 16:13] VITALS: BP 148/84; PULSE 109; RESP 16; TEMP 37; O2SAT 99; BMI 32.9
--- NOTE | 2023-09-15 16:26 | W.ED.EAR ---
HPI - Ear Problem General: Chief complaint: Ear Stated complaint: something in right ear Time Seen by Provider: 09/15/23 16:05 History of Present Illness: 17-year-old female comes in today for complaints of something in her right ear. Patient is having difficulty hearing out of the right ear. Patient does have a history of cerumen impaction. Patient had tried some peroxide and irrigation to the ear with no relief. Patient appears nontoxic. Patient appears no acute distress. Review of Systems General: Reports: 10 or more systems reviewed and unremarkable except in HPI and below ENMT: Reports: change in hearing [facility] ED PFSH: Medical History (Updated 09/15/23 @ 17:22 by TERE Retana) Allergic rhinitis Hyperactivity Surgical History (Updated 08/14/23 @ 12:55 by Jan Arteaga MD) S/P primary low transverse (~06/20/23) FTD-- performed by Chandler at [facility]. History of placement of ear tubes Family History Mother Migraines Other Suicide Denies family history of Cervical cancer Colon cancer Ovarian cancer Diabetes Breast cancer Hypertension Uterine cancer Stroke Social History Marital status: Single Female Reproductive History: Date of last menstrual period: 08/22/23 Physical Exam Const: COMMON NORMALS: alert HENMT: TYMPANIC MEMBRANE: TM abnormal TM laterality: bilateral obstructed by cerumen Neck/C-Spine: COMMON NORMALS: full ROM Resp: COMMON NORMALS: normal respiratory effort and clear to auscultation bilaterally AUSCULTATION: clear to auscultation bilaterally Cardio: COMMON NORMALS: regular rate RATE: regular rate Back/Pelvis: COMMON NORMALS: thoracic and lumbar spine normal to inspection Extremity: COMMON NORMALS: normal to inspection Neuro: SENSORIUM/ORIENTATION: Yes alert Skin: COMMON NORMALS: turgor normal GENERAL SKIN EXAM: turgor normal Course Vital Signs: Vital signs: Vital Signs Temperature 98.6 F 09/15/23 16:13 Pulse Rate 109 H 09/15/23 16:13 Respiratory Rate 16 09/15/23 16:13 Blood Pressure 148/84 09/15/23 16:13 Pulse Oximetry 99 09/15/23 16:13 Oxygen Delivery Me thod Room Air 09/15/23 16:13 MDM - Ear Medical Decision Making Patient presents with decreased hearing in the right ear and concerns for possible something being in her ear. Patient appears nontoxic. Patient appears no acute distress. Bilateral TMs are obscured by cerumen. Differential diagnosis foreign body right ear, cerumen impaction, otitis externa. Ear was irrigated after use of Cerumenex. Patient continued to have a brown piece of wax laying up against the tympanic membrane. There may be a foreign body embedded in the wax but it is hard for me to discern. Recommend follow-up with v[facility] clinical research for further evaluation and removal of probable impacted cerumen. Patient was covered with antibiotic otic drops for secondary otitis externa. No radiology studies performed this visit Discharge Plan Discharge Patient Disposition: Home Clinical Impression: Foreign body in right ear Qualifiers: Encounter type: initial encounter Qualified Code(s): T16.1XXA - Foreign body in right ear, initial encounter Condition: Stable Prescriptions: No Action Xulane 150-35 mcg/24 hr patch weekly 1 patch transdermal Q7D Qty: 3 12RF Rx Instructions: apply once weekly for 3 weeks of a 4-week cycle Discharge Orders: Discharge ED (Routine); Ordered 09/15/23 Ordered By: Robert Rodas Referrals: Maite Crowe FNP-C [Primary Care Provider] - Discharge Diet: Usual diet Discharge Activity: Increase activity as tolerated Patient Instructions: Foreign Body - Ear Activity Restrictions/Additional Instructions: Use antibiotic eardrops neomycin?polymyxin?hydrocortisone 4 drops to the affected ear 3 times a day for the next 7 days. Case management will contact you regarding follow-up appointment with [facility] clinical research for further evaluation and treatment. Return to ER for high fever, uncontrolled pain, or new concerns. Coding Level of Care Code ED Antique Clock Repairer for Estefania Dunn
[2023-09-15] MEDS: carbamide peroxide Otic 15 mL Btl 5 DROP EAR-RIGHT (16:41)
[2023-09-15] MEDS: neomycin-poly-hydrocort Otic Susp 10 mL Btl 4 DROP EAR-RIGHT (17:42)
[2023-09-15 17:44] VITALS: PULSE 96; RESP 16; O2SAT 98
--- NOTE | 2023-09-15 19:49 | DCPLANNER ---
Message sent to ENT for a follow up of a foreign body in Ear.
== END 2023-09-15 17:45 | disposition home or self-care (01) ==
PROVIDERS: Emergency Provider Nurse Practitioner Family; PCP Nurse Practitioner Family
DX: T16.1XXA Foreign body in right ear, initial encounter (principal); W44.9XXA Unspecified foreign body entering into or through a natural orifice, initial encounter
CPT/HCPCS: 99283

== ENCOUNTER 2023-11-22 17:38 | Emergency (ER) | payer MEDICAID, SELFPAY ==
[2023-11-22 17:45] VITALS: BP 135/84; PULSE 102; RESP 16; TEMP 36.9; O2SAT 100
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
[2023-11-22] MEDS: naproxen 500 mg Tablet PO (18:45)
== END 2023-11-22 19:09 | disposition home or self-care (01) ==
PROVIDERS: Emergency Provider Emergency Medicine; PCP Nurse Practitioner Family
DX: S50.02XA Contusion of left elbow, initial encounter (principal); V89.2XXA Person injured in unspecified motor-vehicle accident, traffic, initial encounter
CPT/HCPCS: 73080; 73110; 99283